=== PATIENT | male | born 1960 | race Two or more races ===

== ENCOUNTER 2016-11-26 12:55 | Inpatient (IN) | payer OTHER ==
[2016-11-26 15:43] VITALS: BMI 30.7
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
[2016-11-26] MEDS ORDERED: P-EPHED 60MG/TRIPROLIDI 2.5MG TABLET PO PRN (16:48)
[2016-11-26] MEDS ORDERED: chlordiazePOXIDE HCL 25 MG CAPSULE PO ONE (16:48)
[2016-11-26] MEDS ORDERED: guaiFENesin/D-METHORPHAN HB 10 ML UNIT-DOSE CUPS PO PRN (16:48)
[2016-11-26] MEDS ORDERED: chlordiazePOXIDE HCL 25 MG CAPSULE PO PRN (16:48)
[2016-11-26] MEDS ORDERED: LOPERAMIDE HCL 2 MG CAPSULE PO PRN (16:48)
[2016-11-26] MEDS ORDERED: IBUPROFEN 400 MG TABLET (FP) PO PRN (16:48)
[2016-11-26] MEDS ORDERED: MAGNESIUM CITRATE 300 ML BOTTLE PO PRN (16:48)
[2016-11-26] MEDS ORDERED: MAGNESIUM HYDROX 2400MG/30ML ORAL SUSPENSION 30 ML CUP PO PRN (16:48)
[2016-11-26] MEDS ORDERED: MENTHOL/PHENOL 1 EACH UD MM PRN (16:48)
[2016-11-26] MEDS ORDERED: NICOTINE POLACRILEX 4 MG GUM BC PRN (16:48)
[2016-11-26] MEDS ORDERED: MAG HYDROX/AL HYDROX/SIMETH 30 ML UNIT-DOSE CUP PO PRN (16:48)
[2016-11-26] MEDS ORDERED: hydrOXYzine PAMOATE 50 MG CAPSULE (FP) PO PRN (16:48)
[2016-11-26] MEDS: chlordiazePOXIDE HCL 25 MG CAPSULE PO SCH ×2 (19:16→22:32)
[2016-11-26] MEDS: THIAMINE HCL 100 MG TABLET (FP) PO SCH (22:32)
[2016-11-26] MEDS: diphenhydrAMINE HCL 50 MG CAPSULE PO PRN (22:33)
[2016-11-27] MEDS: chlordiazePOXIDE HCL 25 MG CAPSULE PO SCH ×4 (05:38→22:42)
[2016-11-27] MEDS: PRENATAL VITAMINS W/ FOLIC ACID TABLET (FP) PO SCH (10:30)
[2016-11-27] MEDS: NICOTINE 21 MG/24 HOURS TOPICAL PATCH TD SCH (10:31)
[2016-11-27 10:44] LABS: MCH 28.9 pg (25.7-33.7); MCHC 32.7 g/dl (32.0-35.9); MEAN CELL VOLUME 88.4 fl (80-96); MEAN PLT VOLUME 9.6 fl (7.5-11.1); PLATELET COUNT 199 K/MM3 (134-434); RDW 13.2 % (11.9-15.9); WHITE BLOOD COUNT 4.4 K/mm3 (4.0-10.0)
[2016-11-27 10:46] LABS: ALBUMIN 3.7 g/dl (3.4-5.0); ALK PHOS 88 U/L (45-117); ANION GAP 9 (8-16); BILIRUBIN,TOTAL 0.3 mg/dL (0.2-1.0); CALCIUM 9.2 mg/dL (8.5-10.1); CO2 27 mmol/L (21-32); COCKROFT - GAULT 105.8; CREATININE 1.1 mg/dL (0.7-1.3); GLUCOSE,RANDOM 87 mg/dL (74-106); SGOT/AST 22 U/L (15-37); SGPT/ALT 28 U/L (12-78); TOT PROT 8.1 g/dl (6.4-8.2)
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
--- NOTE | 2016-11-27 15:28 | PN ---
[facility] CIWA - CIWA Score Nausea/Vomitin-No Nausea/No Vomiting Muscle Tremors: 4-Moderate,w/Arms Extend Anxiety: 3 Agitation: 2 Paroxysmal Sweats: 3 Orientation: 2-Disoriented Date<2 days Tacttile Disturbances: 1-Very Mild Itch/Numbness Auditory Disturbances: 2-Mild Harshness/Frighten Visual Disturbances: 2-Mild Sensitivity Headache: 0-None Present CIWA-Ar Total Score: 19 S Progress Note (SOAP) Subjective: Body Aches, Lower Back Ache, Tremors, Sweating. Objective: PT. A & O X 2 (DISORIENTED ABOUT DAY / DATE). PT. OBSERVED AMBULATING ON UNIT. NO ACUTE DISTRESS. 11/27/16 15:27 Vital Signs Temperature 96.1 F L 11/27/16 13:05 Pulse Rate 88 11/27/16 13:05 Respiratory Rate 18 11/27/16 13:05 Blood Pressure 121/82 11/27/16 13:05 O2 Sat by Pulse Oximetry (%) Laboratory Tests 11/27/16 11/27/16 06:00 06:00 WBC 4.4 RBC 4.98 Hgb 14.4 Hct 44.0 MCV 88.4 MCHC 32.7 RDW 13.2 Plt Count 199 MPV 9.6 Sodium 141 Potassium 4.2 Chloride 105 Carbon Dioxide 27 Anion Gap 9 BUN 14 Creatinine 1.1 Creat Clearance w eGFR > 60 Random Glucose 87 Calcium 9.2 Total Bilirubin 0.3 AST 22 ALT 28 Alkaline Phosphatase 88 Total Protein 8.1 Albumin 3.7 LABS NOTED. Assessment: 11/27/16 15:28 WITHDRAWAL SYMPTOMS. Plan: CONTINUE DETOX.
--- NOTE | 2016-11-27 19:23 | EKG ---
Test Reason : Blood Pressure : / mmHG Vent. Rate : 076 BPM Atrial Rate : 076 BPM P-R Int : 144 ms QRS Dur : 078 ms QT Int : 422 ms P-R-T Axes : 062 -11 022 degrees QTc Int : 474 ms NORMAL SINUS RHYTHM NORMAL ECG NO PREVIOUS ECGS AVAILABLE Confirmed by SANGEETHA RODARTE MD ([id number]) on 11/27/2016 7:23:23 PM Referred By: Confirmed By:SANGEETHA RODARTE MD
[2016-11-27] MEDS: THIAMINE HCL 100 MG TABLET (FP) PO SCH (22:42)
[2016-11-27] MEDS: diphenhydrAMINE HCL 50 MG CAPSULE PO PRN (22:42)
[2016-11-27] MEDS: DIVALPROEX SODIUM 500 MG TABLET E.C. PO SCH (22:42)
[2016-11-27 23:00] LABS: URINE APPEARANCE CLEAR; URINE BILIRUBIN NEGATIVE (NEGATIVE); URINE BLOOD NEGATIVE (NEGATIVE); URINE COLOR STRAW; URINE GLUCOSE (UA) NEGATIVE (NEGATIVE); URINE KETONE NEGATIVE (NEGATIVE); URINE LEUK ESTERASE NEGATIVE (NEGATIVE); URINE NITRITE NEGATIVE (NEGATIVE); URINE PROTEIN NEGATIVE (NEGATIVE); URINE UROBILINOGEN NEGATIVE E.U./dl (0.2-1.0)
[2016-11-28] MEDS: chlordiazePOXIDE HCL 25 MG CAPSULE PO SCH ×2 (05:26→10:14)
[2016-11-28] MEDS: PRENATAL VITAMINS W/ FOLIC ACID TABLET (FP) PO SCH (10:14)
[2016-11-28] MEDS: NICOTINE 21 MG/24 HOURS TOPICAL PATCH TD SCH (10:14)
--- NOTE | 2016-11-28 14:43 | PN ---
[facility] CIWA - CIWA Score Nausea/Vomitin Muscle Tremors: 3 Anxiety: 3 Agitation: 3 Paroxysmal Sweats: No Perspiration Orientation: 0-Oriented Tacttile Disturbances: 1-Very Mild Itch/Numbness Auditory Disturbances: 0-None Visual Disturbances: 0-None Headache: 2-Mild CIWA-Ar Total Score: 15 [facility] Progress Note (SOAP) Subjective: Back pain, anxious, nausea, chills, interrupted sleep Objective: 11/28/16 14:42 Last Vital Signs Temp Pulse Resp BP Pulse Ox 97 F L 104 H 20 116/77 11/28/16 13:34 11/28/16 13:34 11/28/16 13:34 11/28/16 13:34 Laboratory Tests 11/27/16 11/27/16 11/27/16 06:00 06:00 06:00 WBC 4.4 RBC 4.98 Hgb 14.4 Hct 44.0 MCV 88.4 MCHC 32.7 RDW 13.2 Plt Count 199 MPV 9.6 Sodium 141 Potassium 4.2 Chloride 105 Carbon Dioxide 27 Anion Gap 9 BUN 14 Creatinine 1.1 Creat Clearance w eGFR > 60 Random Glucose 87 Calcium 9.2 Total Bilirubin 0.3 AST 22 ALT 28 Alkaline Phosphatase 88 Total Protein 8.1 Albumin 3.7 Urine Color Urine Appearance Urine pH Ur Specific [place] Urine Protein Urine Glucose (UA) Urine Ketones Urine Blood Urine Nitrite Urine Bilirubin Urine Urobilinogen Ur Leukocyte Esterase RPR Titer Nonreactive 11/27/16 17:26 WBC RBC Hgb Hct MCV MCHC RDW Plt Count MPV Sodium Potassium Chloride Carbon Dioxide Anion Gap BUN Creatinine Creat Clearance w eGFR Random Glucose Calcium Total Bilirubin AST ALT Alkaline Phosphatase Total Protein Albumin Urine Color Straw Urine Appearance Clear Urine pH 5.0 Ur Specific [place] 1.010 Urine Protein Negative Urine Glucose (UA) Negative Urine Ketones Negative Urine Blood Negative Urine Nitrite Negative Urine Bilirubin Negative Urine Urobilinogen Negative Ur Leukocyte Esterase Negative RPR Titer Labs noted Assessment: 11/28/16 14:43 Withdrawal symptoms Plan: Continue detox
[2016-11-28] MEDS: chlordiazePOXIDE 5 MG CAPSULE PO SCH ×2 (17:29→22:21)
[2016-11-28] MEDS: ACETAMINOPHEN 325 MG TABLET (FP) PO PRN (17:31)
[2016-11-28] MEDS: DIVALPROEX SODIUM 500 MG TABLET E.C. PO SCH (22:21)
[2016-11-28] MEDS: THIAMINE HCL 100 MG TABLET (FP) PO SCH (22:21)
[2016-11-28] MEDS: diphenhydrAMINE HCL 50 MG CAPSULE PO PRN (22:21)
[2016-11-29] MEDS: chlordiazePOXIDE 5 MG CAPSULE PO SCH ×2 (05:53→10:52)
[2016-11-29] MEDS ORDERED: IBUPROFEN 400 MG TABLET (FP) PO PRN (09:23)
--- NOTE | 2016-11-29 09:26 | PN ---
S Progress Note (SOAP) Subjective: Sweating,interrupted sleep,restless Objective: 11/29/16 09:24 Vital Signs - 8 hr 11/29/16 11/29/16 03:30 06:11 Temperature 96.7 F L Pulse Rate 72 Respiratory 18 18 Rate Blood Pressure 121/84 Laboratory Last Values WBC 4.4 K/mm3 (4.0-10.0) 11/27/16 06:00 RBC 4.98 M/mm3 (4.00-5.60) 11/27/16 06:00 Hgb 14.4 GM/dL (11.7-16.9) 11/27/16 06:00 Hct 44.0 % (35.4-49) 11/27/16 06:00 MCV 88.4 fl (80-96) 11/27/16 06:00 MCHC 32.7 g/dl (32.0-35.9) 11/27/16 06:00 RDW 13.2 % (11.9-15.9) 11/27/16 06:00 Plt Count 199 K/MM3 (134-434) 11/27/16 06:00 MPV 9.6 fl (7.5-11.1) 11/27/16 06:00 Sodium 141 mmol/L (136-145) 11/27/16 06:00 Potassium 4.2 mmol/L (3.5-5.1) 11/27/16 06:00 Chloride 105 mmol/L (98-107) 11/27/16 06:00 Carbon Dioxide 27 mmol/L (21-32) 11/27/16 06:00 Anion Gap 9 (8-16) 11/27/16 06:00 BUN 14 mg/dL (7-18) 11/27/16 06:00 Creatinine 1.1 mg/dL (0.7-1.3) 11/27/16 06:00 Creat Clearance w eGFR > 60 (>60) 11/27/16 06:00 Random Glucose 87 mg/dL (74-106) 11/27/16 06:00 Calcium 9.2 mg/dL (8.5-10.1) 11/27/16 06:00 Total Bilirubin 0.3 mg/dL (0.2-1.0) 11/27/16 06:00 AST 22 U/L (15-37) 11/27/16 06:00 ALT 28 U/L (12-78) 11/27/16 06:00 Alkaline Phosphatase 88 U/L (45-117) 11/27/16 06:00 Total Protein 8.1 g/dl (6.4-8.2) 11/27/16 06:00 Albumin 3.7 g/dl (3.4-5.0) 11/27/16 06:00 Urine Color Straw 11/27/16 17:26 Urine Appearance Clear 11/27/16 17:26 Urine pH 5.0 (5.0-8.0) 11/27/16 17:26 Ur Specific [place] 1.010 (1.005-1.025) 11/27/16 17:26 Urine Protein Negative (NEGATIVE) 11/27/16 17:26 Urine Glucose (UA) Negative (NEGATIVE) 11/27/16 17:26 Urine Ketones Negative (NEGATIVE) 11/27/16 17:26 Urine Blood Negative (NEGATIVE) 11/27/16 17:26 Urine Nitrite Negative (NEGATIVE) 11/27/16 17:26 Urine Bilirubin Negative (NEGATIVE) 11/27/16 17:26 Urine Urobilinogen Negative E.U./dl (0.2-1.0) 11/27/16 17:26 Ur Leukocyte Esterase Negative (NEGATIVE) 11/27/16 17:26 RPR Titer Nonreactive (NONREACTIVE) 11/27/16 06:00 labs noted Assessment: 11/29/16 09:25 Withdrawal sx. Plan: Continue detox
[2016-11-29] MEDS: PRENATAL VITAMINS W/ FOLIC ACID TABLET (FP) PO SCH (10:16)
[2016-11-29] MEDS: ACETAMINOPHEN 325 MG TABLET (FP) PO PRN (10:18)
[2016-11-29] MEDS: NICOTINE 21 MG/24 HOURS TOPICAL PATCH TD SCH (10:19)
[2016-11-29] MEDS: chlordiazePOXIDE HCL 10 MG CAPSULE PO SCH ×2 (17:25→22:24)
[2016-11-29] MEDS: THIAMINE HCL 100 MG TABLET (FP) PO SCH (22:24)
[2016-11-29] MEDS: diphenhydrAMINE HCL 50 MG CAPSULE PO PRN (22:25)
[2016-11-29] MEDS: DIVALPROEX SODIUM 500 MG TABLET E.C. PO SCH (22:25)
[2016-11-30] MEDS: chlordiazePOXIDE HCL 10 MG CAPSULE PO SCH ×2 (06:37→10:18)
[2016-11-30 09:37] VITALS: BP 137/98; PULSE 77; TEMP 97.3
[2016-11-30] MEDS: PRENATAL VITAMINS W/ FOLIC ACID TABLET (FP) PO SCH (10:18)
[2016-11-30] MEDS: NICOTINE 21 MG/24 HOURS TOPICAL PATCH TD SCH (10:18)
--- NOTE | 2016-11-30 12:40 | DS ---
[facility] Detox Discharge Summary Admission Date: 11/26/16 Discharge Date: 11/30/16 - History Present History: Alcohol Dependence Additional Comments: PT. ADVISED TO FOLLOW-UP WITH [facility] AFTER DISCHARGE FROM DETOX FOR GENERAL MEDICAL ASSESSMENT. Pertinent Past History: HIV +, Bipolar disorder, Schizoaffective Disorder. - Physical Exam Results Vital Signs: Vital Signs Temperature 97.3 F L 11/30/16 09:36 Pulse Rate 77 11/30/16 09:36 Respiratory Rate 20 11/30/16 09:36 Blood Pressure 137/98 11/30/16 09:36 O2 Sat by Pulse Oximetry (%) Pertinent Admission Physical Exam Findings: WITHDRAWAL SYMPTOMS. Laboratory Tests 11/27/16 11/27/16 11/27/16 06:00 06:00 06:00 WBC 4.4 RBC 4.98 Hgb 14.4 Hct 44.0 MCV 88.4 MCHC 32.7 RDW 13.2 Plt Count 199 MPV 9.6 Sodium 141 Potassium 4.2 Chloride 105 Carbon Dioxide 27 Anion Gap 9 BUN 14 Creatinine 1.1 Creat Clearance w eGFR > 60 Random Glucose 87 Calcium 9.2 Total Bilirubin 0.3 AST 22 ALT 28 Alkaline Phosphatase 88 Total Protein 8.1 Albumin 3.7 Urine Color Urine Appearance Urine pH Ur Specific [place] Urine Protein Urine Glucose (UA) Urine Ketones Urine Blood Urine Nitrite Urine Bilirubin Urine Urobilinogen Ur Leukocyte Esterase Valproic Acid RPR Titer Nonreactive 11/27/16 11/30/16 17:26 07:00 WBC RBC Hgb Hct MCV MCHC RDW Plt Count MPV Sodium Potassium Chloride Carbon Dioxide Anion Gap BUN Creatinine Creat Clearance w eGFR Random Glucose Calcium Total Bilirubin AST ALT Alkaline Phosphatase Total Protein Albumin Urine Color Straw Urine Appearance Clear Urine pH 5.0 Ur Specific [place] 1.010 Urine Protein Negative Urine Glucose (UA) Negative Urine Ketones Negative Urine Blood Negative Urine Nitrite Negative Urine Bilirubin Negative Urine Urobilinogen Negative Ur Leukocyte Esterase Negative Valproic Acid 37.746 L RPR Titer LABS NOTED. - Treatment Hospital Course: Detox Protocol Followed, Detoxed Safely, Responded well, Discharged Condition Good, Rehab Referral Accepted Patient has Accepted a Rehab Referral to: YES - [facility]. - Medication Discharge Medications: Ambulatory Orders NK [No Known Home Medication] 11/26/16 - Diagnosis (1) Alcohol dependence with uncomplicated withdrawal Status: Acute (2) Nicotine dependence Status: Chronic Qualifiers: Nicotine product type: cigarettes Substance use status: uncomplicated Qualified Code(s): F17.210 - Nicotine dependence, cigarettes, uncomplicated (3) Substance induced mood disorder Status: Acute (4) HIV disease Status: Chronic (5) Schizoaffective disorder Status: Chronic Qualifiers: Schizoaffective disorder type: unspecified Qualified Code(s): F25.9 - Schizoaffective disorder, unspecified (6) Cocaine dependence Status: Acute Qualifiers: Substance use status: uncomplicated Qualified Code(s): F14.20 - Cocaine dependence, uncomplicated - AMA Did Patient Leave Against Medical Advice: No
== END 2016-11-30 12:55 | disposition home or self-care (01) | DRG 774 ==
LOC: YASAS 12:55 → Y3N 17:17
PROVIDERS: ADMIT Internal Medicine; ATTEND Internal Medicine
PROC: HZ2ZZZZ Detoxification Services for Substance Abuse Treatment (ICD-10-PCS; principal; 2016-11-30)
DX: F10.230 Alcohol dependence with withdrawal, uncomplicated (principal); F14.20 Cocaine dependence, uncomplicated; F12.20 Cannabis dependence, uncomplicated; F19.24 Other psychoactive substance dependence with psychoactive substance-induced mood disorder; F25.9 Schizoaffective disorder, unspecified; Z21 Asymptomatic human immunodeficiency virus [HIV] infection status
CPT/HCPCS: 36415; 80053; 80164; 81003; 85027; 86593; 93005; 93010